=== PATIENT | female | born 1945 | race Caucasian/White ===

== ENCOUNTER 2020-05-26 12:48 | Outpatient (REF) | payer MEDICARE, OTHER, SELFPAY ==
--- NOTE | 2020-05-26 13:07 | XR_ITS ---
EXAMINATION: XR ABDOMEN KUB CLINICAL INDICATION: Left renal stone COMPARISON: Previous KUB November 2008 TECHNIQUE: AP view of the abdomen. FINDINGS: There is a left internal ureteral stent in satisfactory position. There are multiple clustered stones in the lower pole of the left kidney. Largest cluster of stones measures 1 cm. There are clustered stones seen adjacent to the proximal left ureteral stent suggestive of left ureteral stones. Largest stone measures approximately 5 mm. There may be a small stone in the lower pole of the right kidney. There is stool throughout the colon suggestive of constipation. There are are degenerative changes and scoliosis of the spine. IMPRESSION: Left ureteral stent in satisfactory position. Multiple left lower pole stones. Column of stones along the left proximal ureteral stent suggestive of left proximal ureteral stones.
[2020-05-26 14:22] LABS: Glucose Urine UA >=1000 MG/DL (NEG); Leukocyte Esterase Urine 2+ (NEG); Nitrite Urine NEG (NEG); Specific Gravity - Urine 1.015 (1.005-1.025); Urine Blood 3+ (NEG); Urine Ketones NEG (NEG); Urine Protein 1+ MG/DL (NEG-TRACE)
[2020-05-26 14:27] LABS: Appearance Urine CLOUDY; Color Urine YELLOW
[2020-05-26 15:16] LABS: RBC Urine TNTC /HPF (0)
== END 2020-05-26 12:49 | disposition home or self-care (01) ==
LOC: HO.LAB 12:48
PROVIDERS: Visit Provider Urology
DX: N20.0 Calculus of kidney (principal); R35.0 Frequency of micturition
CPT/HCPCS: 74018; 81001; 87086

== ENCOUNTER → 2020-06-07 15:04 | Outpatient (BNVA) | payer MEDICARE, OTHER, SELFPAY | PROVIDERS: PCP Internal Medicine; Visit Provider Urology | DX: Z76.89 Persons encountering health services in other specified circumstances (principal) | CPT/HCPCS: Q3014 ==

== ENCOUNTER → 2020-06-23 13:57 | Outpatient (BNVA) | payer MEDICARE, OTHER, SELFPAY | PROVIDERS: PCP Internal Medicine; Visit Provider Urology | DX: Z48.816 Encounter for surgical aftercare following surgery on the genitourinary system (principal); N20.0 Calculus of kidney; Z96.0 Presence of urogenital implants | CPT/HCPCS: 52000; 52310; 81002; 99212 ==

== ENCOUNTER → 2020-08-04 11:19 | Outpatient (BNVA) | payer MEDICARE, OTHER, SELFPAY | PROVIDERS: PCP Internal Medicine; Visit Provider Urology | DX: N32.81 Overactive bladder (principal); N39.0 Urinary tract infection, site not specified | CPT/HCPCS: Q3014 ==

== ENCOUNTER 2020-08-29 06:44 | Day surgery (SDC) | payer MEDICARE, OTHER, SELFPAY ==
[2020-08-23 10:01] VITALS: BMI 29.9
--- NOTE | 2020-08-26 12:50 | HO.ANESPROP2 ---
Documented by User: Iris Milan 08/26/20 12:58 HPI - Anesthesia Eval Consult details Narrative: 74yo F for Cystoscopy, Ureteroroscopy, Retro, Laser,stent placement S/P Cysto, etc 02/2020 with GA-LMA [facility] Past Medical History Medical History CAD (coronary artery disease) Cancer Diabetes GERD (gastroesophageal reflux disease) Hx of cardiac murmur Thyroid disease Surgical History Surgical History Hx of cataract extraction Hx of cystoscopy Hx of lithotripsy Social History Social History Alcohol intake: current Alcohol intake frequency: a few times a month Smoking Status: Former smoker Smoking Quit Date: 2004 Use of substances other than those prescribed or required for medical reasons: No Advance Directives: No Advance Directives Information Provided: Yes Recently lost weight without trying: No Meds Allergies Allergy/AdvReac Type Severity Reaction Status Date / Time morphine [MORPHINE] Allergy Unknown VIOLENT Verified 08/29/20 07:18 N/V, vomiting Home Medications Medication Instructions Recorded Confirmed Type cranberry 400 mg capsule 400 mg PO DAILY 06/07/20 06/23/20 History gabapentin 300 mg capsule 300 mg PO BEDTIME 06/07/20 06/23/20 History insulin aspart U-100 100 unit/mL unit SUBCUT 06/07/20 06/23/20 History (3 mL) subcutaneous pen lactobacillus combination no.8 3 3,000 mmu cells PO DAILY 06/07/20 06/23/20 History billion cell capsule lisinopril 20 mg tablet 20 mg PO DAILY 06/07/20 06/23/20 History omeprazole 20 mg capsule,delayed mg PO 06/07/20 06/23/20 History release oxybutynin chloride 5 mg tablet 5 mg PO BID 06/07/20 06/23/20 History pen needle, diabetic 31 gauge x #1200 ea 06/07/20 06/23/20 History 5/16 tramadol 50 mg tablet 50 mg PO Q6H PRN 06/07/20 06/23/20 History atorvastatin 40 mg tablet mg PO 08/04/20 History bupropion HCl 150 mg 24 hr tablet, mg PO 08/04/20 History extended release diclofenac sodium 1 % topical gel TOPICAL 08/04/20 History diltiazem HCl 240 mg 240 mg PO DAILY 08/04/20 History capsule,extended release 24 hr duloxetine 30 mg capsule,delayed mg PO 08/04/20 History release insulin glargine 100 unit/mL (3 unit SUBCUT 08/04/20 History mL) subcutaneous pen isosorbide mononitrate 60 mg 60 mg PO DAILY 08/04/20 History tablet,extended release 24 hr levothyroxine 175 mcg tablet 175 mcg PO DAILY 08/04/20 History metoprolol succinate 200 mg 200 mg PO DAILY 08/04/20 History tablet,extended release 24 hr Exam Exam Date and Time: August 26, 2020 1250 Height,Weight and Vital Signs: Height 5 ft 5 in Weight 81.647 kg Assessment and Plan Assessment Anesthesia Assessment: Chart Reviewed Documented by User: Adri Rodriguez 08/29/20 07:18 [facility] Past Medical History Medical History CAD (coronary artery disease) Cancer Diabetes GERD (gastroesophageal reflux disease) Hx of cardiac murmur Thyroid disease Surgical History Surgical History Hx of cataract extraction Hx of cystoscopy Hx of lithotripsy Social History Social History Alcohol intake: current Alcohol intake frequency: a few times a month Smoking Status: Former smoker Smoking Quit Date: 2004 Use of substances other than those prescribed or required for medical reasons: No Advance Directives: No Advance Directives Information Provided: Yes Recently lost weight without trying: No Meds Allergies Allergy/AdvReac Type Severity Reaction Status Date / Time morphine [MORPHINE] Allergy Unknown VIOLENT Verified 08/29/20 07:18 N/V, vomiting Home Medications Medication Instructions Recorded Confirmed Type cranberry 400 mg capsule 400 mg PO DAILY 06/07/20 06/23/20 History gabapentin 300 mg capsule 300 mg PO BEDTIME 06/07/20 06/23/20 History insulin aspart U-100 100 unit/mL unit SUBCUT 06/07/20 06/23/20 History (3 mL) subcutaneous pen lactobacillus combination no.8 3 3,000 mmu cells PO DAILY 06/07/20 06/23/20 History billion cell capsule lisinopril 20 mg tablet 20 mg PO DAILY 06/07/20 06/23/20 History omeprazole 20 mg capsule,delayed mg PO 06/07/20 06/23/20 History release oxybutynin chloride 5 mg tablet 5 mg PO BID 06/07/20 06/23/20 History pen needle, diabetic 31 gauge x #1200 ea 06/07/20 06/23/20 History 01/01 tramadol 50 mg tablet 50 mg PO Q6H PRN 06/07/20 06/23/20 History atorvastatin 40 mg tablet mg PO 08/04/20 History bupropion HCl 150 mg 24 hr tablet, mg PO 08/04/20 History extended release diclofenac sodium 1 % topical gel TOPICAL 08/04/20 History diltiazem HCl 240 mg 240 mg PO DAILY 08/04/20 History capsule,extended release 24 hr duloxetine 30 mg capsule,delayed mg PO 08/04/20 History release insulin glargine 100 unit/mL (3 unit SUBCUT 08/04/20 History mL) subcutaneous pen isosorbide mononitrate 60 mg 60 mg PO DAILY 08/04/20 History tablet,extended release 24 hr levothyroxine 175 mcg tablet 175 mcg PO DAILY 08/04/20 History metoprolol succinate 200 mg 200 mg PO DAILY 08/04/20 History tablet,extended release 24 hr Exam Airway Mallampati Class: II TM Dist: >3cm Neck ROM: Full Assessment and Plan Assessment Anesthesia Assessment: Anesthesia Plan Discussed and Chart Reviewed Final Anesthetic Review NPO: Yes ASA Class: III Final Preanesthetic Review: No Changes in Pt Med Stat, Meds/Allgs Chart Reviewed, Consent Obtained/Reviewed and Anes Risks/Benef Reviewed Patient Risk: Intermediate Procedure Risk: Low Assessment/Block/Sedation in SS: Assess/Block/Sedation-SS Anesthetic Plan Anesthetic Plan: GA Disposition: Standard PACU
[2020-08-29 06:57] VITALS: BMI 29.9
[2020-08-29 07:03] LABS: Glucose, Whole Blood 149 mg/dL (60-115)
[2020-08-29 07:12] VITALS: BP 145/84; PULSE 78; RESP 16; TEMP 36.2; O2SAT 97
--- NOTE | 2020-08-29 07:13 | FL_ITS ---
EXAMINATION: XR FLUOROSCOPY WITH IMAGES CLINICAL INFORMATION: Nephrolithiasis. Left retrograde exam. COMPARISON: Previous exam February 2020 TECHNIQUE: Fluoroscopy performed by Dr. Tobias Mane. Fluoroscopy time: 88 seconds Dose: 27 mgy Images: 2 FINDINGS: Initial image demonstrates a catheter in the left ureter. Final image demonstrates the distal end of a left internal ureteral stent with pigtail projecting over the bladder FL/FL guidance in OR IMPRESSION: Fluoroscopy guidance for left retrograde exam
[2020-08-29] MEDS: Lactated Ringers 1,000 ML 50 ML IVCONT (07:20)
--- NOTE | 2020-08-29 07:43 | MHC.SHP ---
Pre-Procedural Eval Section A The patient is an INPATIENT: No Changes since office visit: No Cold of Flu in the past 2 weeks, No New Medical Problems, No Changes in Medication and No Patient answered all questions The History & Physical has been completed within 30 days and I have reviewed it.: Yes Section B Chief Complaint: calculus of kidney Allergies: Allergies Allergy/AdvReac Type Severity Reaction Status Date / Time morphine [MORPHINE] Allergy Unknown VIOLENT Verified 08/29/20 07:18 N/V, vomiting Plan I have reviewed the history and physical and performed a pertinent physical examination on my patient. No changes have occurred unless specified. Left Retrograde ureteroscopy laser lithotripsy stent placement
[2020-08-29] MEDS: levoFLOXacin 500 MG TABLET PO (07:44)
--- NOTE | 2020-08-29 09:25 | PM.OP ---
Brief Operative Note Date of Service: 08/29/20 Pre-op diagnosis: Left renal stones Post-op diagnosis: other (1. Left renal stones 2. Left ureteric stones) Procedure: 1. Left retrograde 2. Left semi rigid ureteroscopy laser lithotripsy stone basketing 3. Left ureteric sheath placement under fluoroscopy 4. Left flexible ureteroscopy renal laser lithotripsy stone basketing 5. Left stent placement Implants: left 6F x 22 cm Double J stent Surgeon: Tobias Mane MD Estimated blood loss (mL): 0 Pathology: other (stones) Condition: stable Disposition: same day
--- NOTE | 2020-08-29 09:28 | W.PM.OPN ---
Operative Note Operative Note Date of Service: 08/29/20 Narrative: PreOperative Diagnosis: Left renal stones Post Operative Diagnosis: 1. Left renal stone 2. Left ureteric stones Procedure: - cystoscopy, retrograde - left rigid ureteroscopy laser lithotripsy stone basketing - left ureteric access sheath placed - left flexible renal ureteroscopy, laser lithotripsy, stone basketing - stent placement Surgeon: Dr Tobias Mane Anesthesia: General Indications for procedure: This is a very pleasant 74-year-old female. Known stone former. On recent evaluation had persistent pain on left side and leukocytosis. Ultrasound showed collection of 1.8 cm of stones in the left mid pole. Recommendation was for ureteroscopy to remove the stones. Risks and benefits have been discussed Procedure: After informed consent was verified patient was brought to the operating placed in supine position. Anesthesia was administered per protocol. Patient was placed in modified dorsal lithotomy position and prepped and draped in a sterile fashion. Safety pause time-out and side of surgery confirmed. Antibiotics confirmed. A 22 [place] cystoscope was placed per urethra. Ureteric orifices seen in normal position. Left retrograde was performed. There appeared to be multiple bubbles in small filling defects in the ureter however initial imaging and suggest stones were only in the kidney. Attempt was made to place a ureteric dilator after warrant in place. It was not able to be advanced. A rigid ureteral scope was obtained and placed alongside the wire. Encountered multiple stones in the distal portion of the ureter. At the junction between the distal and mid ureter there was narrowing appeared to be inflamed stone a been imbedded. Using a holmium laser stones were broken into small pieces and using a basket they were removed along the path of the ureter. A number of stones removed suggestive that stones that had been in the kidney may have fallen down and become stuck in the distal portion of the ureter. Once the ureter was cleared ureteric access sheath was placed. The flexible ureteroscope was then placed. We encountered in the mid calyx a collection of stones up to 6 mm in size. Using a laser the broken into small pieces. We then made multiple passes with a basket noted to remove the stones. Prior to doing this we noted that some of the efflux from the kidney had been discolored. In order to maintain proper antibiotic coverage dose of gentamicin was given and she will be discharged with 5 days of antibiotics. Passes were made. It appeared the stones were inflamed and imbedded on the sidewall of the calyx. Using laser the were broken and removed. Approximately 95% of the stone burden was able to be basketed. Remaining fragments would be expected to pass. Completion the procedure a 6 [place] by 22 cm stent was placed. Good coil seen within renal pelvis and in the bladder. The bladder was emptied. Multiple fragments been sent for analysis. She tolerated the procedure well and was extubated in the operating room and transferred in stable condition to the recovery room Pathology: Stones Drains: 6 [place] by 22 cm double-J ureteric stent
[2020-08-29 09:32] VITALS: BP 153/88; PULSE 87; RESP 16; TEMP 36.6; O2SAT 96
[2020-08-29 09:37] VITALS: BP 157/84; PULSE 84; RESP 16; O2SAT 97
[2020-08-29 09:42] VITALS: BP 154/86; PULSE 88; RESP 18; O2SAT 96
[2020-08-29 09:47] VITALS: BP 152/75; PULSE 85; RESP 18; O2SAT 96
[2020-08-29] MEDS: traMADoL HCL 50 MG TABLET PO (10:00)
[2020-08-29] MEDS: Phenazopyridine HCL 100 MG TABLET PO (10:01)
[2020-08-29 10:02] VITALS: BP 144/68; PULSE 84; RESP 18; O2SAT 99
--- NOTE | 2020-08-29 11:10 | HO.POSTANES ---
Post Anesthesia Evaluation Post Anesthesia Evaluation Vital Signs: Vital Signs Temp Pulse Resp BP Pulse Ox 08/29/20 10:02 84 18 144/68 H 99 08/29/20 09:47 85 18 152/75 H 96 08/29/20 09:42 88 18 154/86 H 96 08/29/20 09:37 84 16 157/84 H 97 08/29/20 09:32 97.9 F 87 16 153/88 H 96 08/29/20 07:12 97.2 F 78 16 145/84 H 97 Anesthesia: General LMA Mental Status: Awake Pain Control: Satisfactory Nausea/Vomiting: None Hydration: Adequate Anesthesia-Related Issues: No Anes. Related Issues
[2020-09-09 22:06] LABS: Stone Source KIDNEY
== END 2020-08-29 11:06 | disposition home or self-care (01) ==
PROVIDERS: PCP Internal Medicine; Visit Provider Urology
PROC: (CPT 52356; principal; 2020-08-29 08:20)
DX: N20.0 Calculus of kidney (principal); N20.1 Calculus of ureter; Z87.442 Personal history of urinary calculi; E11.9 Type 2 diabetes mellitus without complications; K21.9 Gastro-esophageal reflux disease without esophagitis; E03.9 Hypothyroidism, unspecified; Z87.891 Personal history of nicotine dependence; Z88.8 Allergy status to other drugs, medicaments and biological substances
CPT/HCPCS: 52356; 82365; 82947; 87086; 88300; C1769; C2617; J0131; J1100; J1580; J2405; J3010; Q9967

== ENCOUNTER → 2020-12-13 15:03 | Outpatient (BNVA) | payer MEDICARE, OTHER, SELFPAY | PROVIDERS: PCP Internal Medicine; Visit Provider Urology | DX: N20.0 Calculus of kidney (principal) | CPT/HCPCS: 52310; 99212 ==

== ENCOUNTER 2021-01-13 14:00 | Outpatient (REF) | payer MEDICARE, OTHER, SELFPAY ==
--- NOTE | ~2021-01-13 | XR_ITS ---
EXAMINATION: XR ABDOMEN KUB CLINICAL INDICATION: Ureteral stone COMPARISON: Previous CT KUB May 2020 TECHNIQUE: AP view of the abdomen. FINDINGS: Evaluation for stone is limited due to overlying bowel gas. The previously identified left internal ureteral stent is no longer seen. There is question of small right renal stones, largest measuring 1 x 3 mm in the lower pole. There is question of a 3 x 5 mm left lower pole renal stone. No calcifications along the expected course of the ureters seen. There is stool throughout the colon suggestive of constipation. There is scoliosis and degenerative change of the spine. XR/XR KUB IMPRESSION: Limited exam due to overlying bowel gas. Question small bilateral renal stones.
== END 2021-01-13 14:01 | disposition home or self-care (01) ==
LOC: HO.XRAY 14:00
PROVIDERS: PCP Internal Medicine; Visit Provider Urology
DX: N20.0 Calculus of kidney (principal); N32.81 Overactive bladder
CPT/HCPCS: 74018; 99212

== ENCOUNTER 2021-02-01 13:11 | Outpatient (REF) | payer MEDICARE, OTHER, SELFPAY ==
--- NOTE | ~2021-02-01 | US_ITS ---
EXAMINATION: US RETROPERITONEAL LIMITED (RENAL ONLY) CLINICAL INFORMATION: Calculus of kidney. COMPARISON: KUB 01/13/2021 and 05/26/2020. Ultrasound bladder 10/20/2018. TECHNIQUE: Real-time imaging of the kidneys. FINDINGS: RIGHT KIDNEY: 11.1 x 5.7 x 4.5 cm (SAG x AP x TRV). The kidney is normal in size, contour, and echogenicity. Renal cortical thickness is normal. There is a 5 x 6 mm stone in the upper pole. No focal parenchymal lesions or hydronephrosis. LEFT KIDNEY: 10.0 x 4.8 x 5.7 cm (SAG x AP x TRV). The kidney is normal in size, contour, and echogenicity. Renal cortical thickness is normal. There are 2 stones in the lower pole measuring 5 x 6 mm and 4 mm. No focal parenchymal lesions or hydronephrosis. US/US renal BI IMPRESSION: Bilateral renal stones.
== END 2021-02-01 13:12 | disposition home or self-care (01) ==
LOC: HO.US 13:11
PROVIDERS: PCP Family Medicine; Visit Provider Urology
DX: N20.0 Calculus of kidney (principal)
CPT/HCPCS: 76775

== ENCOUNTER → 2021-02-21 16:07 | Outpatient (BNVA) | payer MEDICARE, OTHER, SELFPAY | PROVIDERS: PCP Internal Medicine; Visit Provider Urology | DX: N20.0 Calculus of kidney (principal); N32.81 Overactive bladder; E11.9 Type 2 diabetes mellitus without complications; Z88.6 Allergy status to analgesic agent | CPT/HCPCS: Q3014 ==

== ENCOUNTER 2021-05-03 07:51 | Day surgery (SDC) | payer MEDICARE, OTHER, SELFPAY ==
--- NOTE | 2021-05-02 08:47 | HO.ANESPROP2 ---
Documented by User: Iris Milan NP 05/02/21 12:48 HPI - Anesthesia Eval Consult details Narrative: 75yo F for Left ESWL Cardiac at intermed risk (dizziness deemed unlikely cardiac) s/p cysto, etc 08/2020 with GA-LMA 4 No prev ESWL *Allergy to morphine* PMFSH Active Problems Active Problems: All Active Problems (Updated 08/26/20 @ 12:57 by Iris Milan NP) Nephrolithiasis (Acute) Fungal infection (Acute) Overactive bladder (Acute) Recurrent UTI (Acute) Past Medical History Medical History CAD (coronary artery disease) Cancer Diabetes GERD (gastroesophageal reflux disease) Hx of cardiac murmur Hypertrophic cardiomyopathy Thyroid disease Surgical History Surgical History Hx of cataract extraction Hx of cystoscopy Hx of lithotripsy Social History Social History Alcohol intake: current Alcohol intake frequency: holidays/special occasions only Patient Tobacco Use Status: Former Tobacco user Quit Date: 2005 Use of substances other than those prescribed or required for medical reasons: No Are you DNR?: No Advance Directives: No Advance Directives Information Provided: Yes Meds Allergies Allergy/AdvReac Type Severity Reaction Status Date / Time morphine [MORPHINE] Allergy Unknown VIOLENT Verified 02/21/21 16:17 N/V, vomiting Home Medications Medication Instructions Recorded Confirmed Last Taken Type cranberry 400 mg capsule 400 mg PO DAILY 06/07/20 06/23/20 Unknown History gabapentin 300 mg capsule 300 mg PO BEDTIME 06/07/20 06/23/20 Unknown History insulin aspart U-100 100 unit/mL unit SUBCUT 06/07/20 06/23/20 Unknown History (3 mL) subcutaneous pen lactobacillus combination no.8 3 3,000 mmu cells PO DAILY 06/07/20 06/23/20 Unknown History billion cell capsule (Adult Probiotic) lisinopril 20 mg tablet 20 mg PO DAILY 06/07/20 06/23/20 Unknown History omeprazole 20 mg capsule,delayed mg PO 06/07/20 06/23/20 08/29/20 History release oxybutynin chloride 5 mg tablet 5 mg PO BID 06/07/20 06/23/20 Unknown History pen needle, diabetic 31 gauge x #1200 ea 06/07/20 06/23/20 Unknown History 01/01 tramadol 50 mg tablet 50 mg PO Q6H PRN 06/07/20 06/23/20 Unknown History atorvastatin 40 mg tablet mg PO 08/04/20 Unknown History bupropion HCl 150 mg 24 hr tablet, mg PO 08/04/20 Unknown History extended release diclofenac sodium 1 % topical gel TOPICAL 08/04/20 Unknown History diltiazem HCl 240 mg 240 mg PO DAILY 08/04/20 Unknown History capsule,extended release 24 hr duloxetine 30 mg capsule,delayed mg PO 08/04/20 Unknown History release insulin glargine 100 unit/mL (3 unit SUBCUT 08/04/20 05/03/21 History mL) subcutaneous pen isosorbide mononitrate 60 mg 60 mg PO DAILY 08/04/20 08/29/20 History tablet,extended release 24 hr levothyroxine 175 mcg tablet 175 mcg PO DAILY 08/04/20 08/29/20 History metoprolol succinate 200 mg 200 mg PO DAILY 08/04/20 Unknown History tablet,extended release 24 hr blood sugar diagnostic #10 ea 12/13/20 Unknown History isosorbide mononitrate 30 mg 30 mg PO DAILY 12/13/20 Unknown History tablet,extended release 24 hr Exam Exam Date and Time: May 02, 2021 0847 Narrative Narrative: Per cardiac clearance 04/2014 cardiac cath showed an occlusion of very distal LAD and small vessel disease in first obtuse marginal branch (medically managed) Echo 07/2020: dynamic LV function with mild LVOT obstructionn Assessment and Plan Assessment Anesthesia Assessment: Chart Reviewed Documented by User: Adri Rodriguez MD 05/03/21 10:50 [facility] Past Medical History Medical History CAD (coronary artery disease) Cancer Diabetes GERD (gastroesophageal reflux disease) Hx of cardiac murmur Hypertrophic cardiomyopathy Thyroid disease Family History Family history of problems with anesthesia: No Surgical History Surgical History Hx of cataract extraction Hx of cystoscopy Hx of lithotripsy History of Problems with Anesthesia: No Social History Social History Alcohol intake: current Alcohol intake frequency: holidays/special occasions only Patient Tobacco Use Status: Former Tobacco user Quit Date: 2005 Use of substances other than those prescribed or required for medical reasons: No Are you DNR?: No Advance Directives: No Advance Directives Information Provided: Yes Meds Allergies Allergy/AdvReac Type Severity Reaction Status Date / Time morphine [MORPHINE] Allergy Unknown VIOLENT Verified 02/21/21 16:17 N/V, vomiting Home Medications Medication Instructions Recorded Confirmed Last Taken Type cranberry 400 mg capsule 400 mg PO DAILY 06/07/20 06/23/20 Unknown History gabapentin 300 mg capsule 300 mg PO BEDTIME 06/07/20 06/23/20 Unknown History insulin aspart U-100 100 unit/mL unit SUBCUT 06/07/20 06/23/20 Unknown History (3 mL) subcutaneous pen lactobacillus combination no.8 3 3,000 mmu cells PO DAILY 06/07/20 06/23/20 Unknown History billion cell capsule (Adult Probiotic) lisinopril 20 mg tablet 20 mg PO DAILY 06/07/20 06/23/20 Unknown History omeprazole 20 mg capsule,delayed mg PO 06/07/20 06/23/20 08/29/20 History release oxybutynin chloride 5 mg tablet 5 mg PO BID 06/07/20 06/23/20 Unknown History pen needle, diabetic 31 gauge x #1200 ea 06/07/20 06/23/20 Unknown History /16 tramadol 50 mg tablet 50 mg PO Q6H PRN 06/07/20 06/23/20 Unknown History atorvastatin 40 mg tablet mg PO 08/04/20 Unknown History bupropion HCl 150 mg 24 hr tablet, mg PO 08/04/20 Unknown History extended release diclofenac sodium 1 % topical gel TOPICAL 08/04/20 Unknown History diltiazem HCl 240 mg 240 mg PO DAILY 08/04/20 Unknown History capsule,extended release 24 hr duloxetine 30 mg capsule,delayed mg PO 08/04/20 Unknown History release insulin glargine 100 unit/mL (3 unit SUBCUT 08/04/20 05/03/21 History mL) subcutaneous pen isosorbide mononitrate 60 mg 60 mg PO DAILY 08/04/20 08/29/20 History tablet,extended release 24 hr levothyroxine 175 mcg tablet 175 mcg PO DAILY 08/04/20 08/29/20 History metoprolol succinate 200 mg 200 mg PO DAILY 08/04/20 Unknown History tablet,extended release 24 hr blood sugar diagnostic #10 ea 12/13/20 Unknown History isosorbide mononitrate 30 mg 30 mg PO DAILY 12/13/20 Unknown History tablet,extended release 24 hr Exam Airway Mallampati Class: II TM Dist: >3cm Neck ROM: Full Assessment and Plan Assessment Anesthesia Assessment: Anesthesia Plan Discussed Final Anesthetic Review Family History of Problems with Anesthesia: No History of Problems with Anesthesia: No NPO: Yes ASA Class: III Final Preanesthetic Review: No Changes in Pt Med Stat, Meds/Allgs Chart Reviewed, Consent Obtained/Reviewed and Anes Risks/Benef Reviewed Patient Risk: Intermediate Procedure Risk: Low Assessment/Block/Sedation in SS: Assess/Block/Sedation-SS Anesthetic Plan Anesthetic Plan: MAC: Disposition: Standard PACU
--- NOTE | ~2021-05-03 | XR_ITS ---
EXAMINATION: XR ABDOMEN KUB CLINICAL INDICATION: Stones. COMPARISON: Most recent renal ultrasound dated 02/01/2021 and abdominal radiograph dated 01/13/2021. TECHNIQUE: AP views of the abdomen. FINDINGS: Evaluation of stones limited due to overlying stool. Right lower pole renal stone measuring 0.5 cm an upper pole renal stone measuring 0.2 cm, unchanged. Stable 0.2 cm left upper pole renal stone. No new radiopaque renal stone. Moderate stool burden. Nonobstructive bowel gas pattern. Levocurvature of the lumbar spine is unchanged. XR/XR KUB IMPRESSION: Stable small bilateral renal stones measuring up to 0.5 cm on the right. Evaluation limited due to moderate stool burden.
[2021-05-03 08:51] VITALS: BMI 30.7
[2021-05-03 08:54] VITALS: BP 138/72; PULSE 66; RESP 16; TEMP 36.6; O2SAT 98
[2021-05-03 09:01] LABS: Glucose, Whole Blood 78 mg/dL (60-115)
[2021-05-03] MEDS: Lactated Ringers 1,000 ML 100 ML IVCONT (09:15)
[2021-05-03] MEDS: Dextrose 5 % 1,000 ML 125 ML IVCONT (09:15)
--- NOTE | 2021-05-03 09:58 | MHC.SHP ---
Pre-Procedural Eval Section A Date of Service: 05/03/21 Section B Chief Complaint: calculus of kidney Details of Present Illness: left ESWL Relevant Social History: None Present Medications: None Medical History: Significant History Allergies: Allergies Allergy/AdvReac Type Severity Reaction Status Date / Time morphine [MORPHINE] Allergy Unknown VIOLENT Verified 02/21/21 16:17 N/V, vomiting Review of Systems Sugical H&P ROS: Negative: Constitution, Cardiovascular, Respiratory, Neurological, Psychiatric, Hem-Onc, Allergic/Immunologic, Gastrointestinal, Genitourinary, Musculoskeletal, Integumentary, Endocrine and Eyes/Ears/Nose/Throat Exam Surgical H&P Exam: Normal: HEENT, Normal: Heart, Normal: Lungs, Normal: Extremities, Normal: Abdomen, Normal: Skin and Normal: Neurological Plan Diagnosis/Plan: Unchanged (left ESWL) I have reviewed the history and physical and performed a pertinent physical examination on my patient. No changes have occurred unless specified.
[2021-05-03 10:17] LABS: Glucose, Whole Blood 122 mg/dL (60-115)
--- NOTE | 2021-05-03 10:40 | P.OP_ITS ---
Operative Note Operative Note Date of Service: 05/03/21 Narrative: PreOperative Diagnosis: left Renal stones Post Operative Diagnosis: left Renal stones Procedure: ESWL - 6mm and 4mm left stones Surgeon: Dr Tobias Mane Anesthesia: mac/sedation Indications for procedure: They understand ESWL may be a staged procedure and subsequent intervention may be required based on imaging after ESWL. They also understand there is a risk of bleeding, infection, damage to adjacent organs. Procedure: After informed consent was verified the patient was brought to the operating room and placed in a supine position. Anesthesia was performed per protocol. Safety pause time-out was performed. Imaging was in the room and laterality confirmed. ESWL was performed. The 1st 500 shocks were performed at 60 hertz. These were performed with increasing power. Once maximum power was reached the rate was increased to 180 hertz. A total of 2500 shocks were given. 2000 to 6mm stone and 500 to 4mm stone Fluoroscopy showed stone disintegration. They tolerated procedure well and was transferred to the recovery area upon com pletion.
[2021-05-03 11:08] VITALS: BP 179/93; PULSE 63; RESP 16; TEMP 36.4; O2SAT 98
[2021-05-03] MEDS: Acetaminophen 325 MG TABLET 650 MG PO (11:17)
[2021-05-03] MEDS: traMADoL HCL 50 MG TABLET PO (11:17)
[2021-05-03 11:23] VITALS: BP 157/77; PULSE 59; RESP 16; O2SAT 98
[2021-05-03 11:38] VITALS: BP 145/81; PULSE 60; RESP 18; TEMP 36.4; O2SAT 99
== END 2021-05-03 12:40 ==
LOC: HO.SSS 07:51
PROVIDERS: PCP Family Medicine; Visit Provider Urology
PROC: (CPT 50590; principal; 2021-05-03 09:30)
DX: N20.0 Calculus of kidney (principal); K21.9 Gastro-esophageal reflux disease without esophagitis; I25.10 Atherosclerotic heart disease of native coronary artery without angina pectoris; E11.9 Type 2 diabetes mellitus without complications; I42.2 Other hypertrophic cardiomyopathy; Z79.82 Long term (current) use of aspirin; Z79.4 Long term (current) use of insulin; Z79.899 Other long term (current) drug therapy; Z87.442 Personal history of urinary calculi; Z87.891 Personal history of nicotine dependence
CPT/HCPCS: 50590; 74018; 82947; J1885; J2250; J3010

== ENCOUNTER 2021-05-31 11:03 | Outpatient (REF) | payer MEDICARE, OTHER, SELFPAY ==
--- NOTE | ~2021-05-31 | US_ITS ---
EXAMINATION: US RETROPERITONEAL LIMITED (RENAL ONLY) CLINICAL INFORMATION: Calculus of kidney. COMPARISON: [facility] 05/03/2021 and 01/13/2031. Renal ultrasound 02/01/2021 and 10/20/2018. TECHNIQUE: Real-time imaging of the kidneys. FINDINGS: RIGHT KIDNEY: 11.8 x 5.5 x 6.3 cm (SAG x AP x TRV). The kidney is normal in size, contour, and echogenicity. Renal cortical thickness is normal. No focal parenchymal lesions or hydronephrosis. Midpole stone measuring 0.5 cm and lower pole stone measuring 0.2 cm. LEFT KIDNEY: 11.0 x 5.5 x 4.7 cm (SAG x AP x TRV). The kidney is normal in size, contour, and echogenicity. Renal cortical thickness is normal. No focal parenchymal lesions or hydronephrosis. Midpole stone measuring 0.5 cm and lower pole stone measuring 0.8 cm. US/US renal BI IMPRESSION: Bilateral nonobstructing renal stones measuring up to 0.5 cm on the right and 0.8 cm on the left. No hydronephrosis.
== END 2021-05-31 11:04 | disposition home or self-care (01) ==
LOC: HO.US 11:03
PROVIDERS: PCP Family Medicine; Visit Provider Urology
DX: N20.0 Calculus of kidney (principal)
CPT/HCPCS: 76775

== ENCOUNTER → 2021-06-06 10:38 | Outpatient (BNVA) | payer MEDICARE, OTHER, SELFPAY | PROVIDERS: PCP Family Medicine; Visit Provider Urology | DX: N20.0 Calculus of kidney (principal); N32.81 Overactive bladder | CPT/HCPCS: Q3014 ==

== ENCOUNTER 2021-11-23 12:50 | Outpatient (REF) | payer MEDICARE, OTHER, SELFPAY ==
--- NOTE | ~2021-11-23 | US_ITS ---
EXAMINATION: US RETROPERITONEAL LIMITED (RENAL ONLY) CLINICAL INFORMATION: Calculus of kidney. COMPARISON: US retroperitoneal limited (renal only) 05/31/2021 and 02/01/2021. XR abdomen [facility] 05/03/2021 and 01/13/2021. TECHNIQUE: Real-time imaging of the kidneys. FINDINGS: RIGHT KIDNEY: 11.1 x 4.5 x 5.4 cm (SAG x AP x TRV). The kidney is normal in size, contour, and echogenicity. Renal cortical thickness is normal. No focal parenchymal lesions or hydronephrosis. There is a 4 mm echogenic focus within the upper pole, likely a nonobstructing stone. LEFT KIDNEY: 9.8 x 5.0 x 5.0 cm (SAG x AP x TRV). The kidney is normal in size, contour, and echogenicity. Renal cortical thickness is normal. No focal parenchymal lesions or hydronephrosis. There is a 5 mm echogenic focus within the midpole compatible with a nonobstructive stone. US/US renal BI IMPRESSION: Single bilateral nonobstructive intrarenal calculi redemonstrated. No hydronephrosis..
== END 2021-11-23 12:51 | disposition home or self-care (01) ==
LOC: HO.US 12:50
PROVIDERS: Visit Provider Urology
DX: N20.0 Calculus of kidney (principal)
CPT/HCPCS: 76775

== ENCOUNTER → 2021-11-28 11:36 | Outpatient (BNVA) | payer MEDICARE, OTHER, SELFPAY | PROVIDERS: PCP Family Medicine; Visit Provider Urology | DX: N32.81 Overactive bladder (principal); N20.0 Calculus of kidney; E11.9 Type 2 diabetes mellitus without complications; I25.10 Atherosclerotic heart disease of native coronary artery without angina pectoris; Z87.891 Personal history of nicotine dependence; Z79.899 Other long term (current) drug therapy | CPT/HCPCS: Q3014 ==

== ENCOUNTER → 2022-01-17 12:00 | Outpatient (BNVA) | payer MEDICARE, OTHER, SELFPAY | PROVIDERS: PCP Family Medicine; Visit Provider Urology | DX: N20.0 Calculus of kidney (principal); N32.81 Overactive bladder; N39.0 Urinary tract infection, site not specified; Z79.899 Other long term (current) drug therapy | CPT/HCPCS: Q3014 ==